=== PATIENT | female | born 1985 | race American Indian/Alaskan Native ===

== ENCOUNTER 2017-05-31 20:58 | Emergency (ER) | payer MEDICAID, OTHER ==
[2017-05-31 22:55] VITALS: BP 139/64
[2017-05-31 23:30] LABS: Bacteria,Urine 2+ /HPF (Negative); Bilirubin,Urine NEG (Negative); Blood,Urine SM (Negative); Color,Urine Yellow (Yellow); HCG Qualitative,Urine Negative (Negative); Nitrite,Urine NEG (Negative); Protein,Urine <15 mg/dL mg/dL (Negative); Urobilinogen,Urine < 2.0 mg/dL (<2.0)
--- NOTE | 2017-06-01 02:46 | Emergency Department Report ---
ED Female HPI - General Chief complaint: Back Pain/Injury Stated complaint: LOWE BACK PAIN/VAG DISCHARGE Time Seen by Provider: 06/01/17 02:40 Source: patient Mode of arrival: Ambulatory Limitations: No Limitations - History of Present Illness Initial comments: This is a 21 y.o. A.A. female presents with low back pain and vaginal discharge for 1 week. The discharge in thin with fishy odor and heavy production. She tried using monistat for 2 days out of 3 day pack but symptoms got worse. Patient reports originally not itching but after using monistat she began to itch. She took a test at home and it was negative yesterday. There is a risk of this possibly being a STD. LMP 04/15/2016. Denies abdominal pain, urgency, frequency, and fever. MD Complaint: vaginal discharge (thin, yellow, and fishy odor), possible STD -: week(s) (1) Location: labia (itching) Radiation: L flank, R flank Severity: moderate Severity scale (0 -10): 5 Quality: aching Consistency: constant Improves with: none Worsens with: none Are you Now?: No Last Menstrual Period: 04/15/16 EDC: 01/20/17 Associated Symptoms: vaginal discharge. denies: vaginal bleeding, abdominal pain, nausea/vomiting, fever/chills, headaches, loss of appetite, dysuria, hematuria, rash, seizure, shortness of breath, syncope, weakness - Related Data Sexually active: Yes Previous Rx's Medication Instructions Recorded Last Taken Type Ondansetron [Zofran Odt] 8 mg PO TID #14 tab.rapdis 08/19/13 Unknown Rx metroNIDAZOLE [Metronidazole] 500 mg PO BID 7 Days #14 tablet 06/01/17 Unknown Rx Allergies Allergy/AdvReac Type Severity Reaction Status Date / Time No Known Allergies Allergy Verified 06/12/13 06:42 ED Review of Systems ROS: Stated complaint: LOWE BACK PAIN/VAG DISCHARGE Other details as noted in HPI Constitutional: denies: chills, fever Respiratory: denies: cough, shortness of breath, wheezing Cardiovascular: denies: chest pain, palpitations Gastrointestinal: denies: abdominal pain, nausea, vomiting, diarrhea Genitourinary: discharge (thin, yellow, fishy odor). denies: urgency, dysuria, frequency, hematuria, abnormal menses, dyspareunia Musculoskeletal: back pain (low back pain). 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 Absent: respiratory distress - Cardiovascular Cardiovascular Exam: Present: regular rate, normal rhythm. Absent: systolic murmur, diastolic murmur, rubs, gallop - GI/Abdominal GI/Abdominal exam: Present: soft, normal bowel sounds - External exam: Present: normal external exam. Absent: erythema, swelling, lesions, lacerations, ecchymosis, bleeding Speculum exam: Present: erythema (strawberry cervix), vaginal discharge (thin, frothy, yellow), cervical discharge. Absent: vaginal bleeding, foreign body, tissue, laceration Bi-manual exam: Present: cervical motion tendernes. Absent: adnexal tenderness , adnexal mass, uterine enlargement - Neurological Exam Neurological exam: Present: alert, oriented X3 - Skin Skin exam: Present: warm, dry, intact, normal color. Absent: rash ED Course Vital Signs 05/31/17 22:50 Temperature 98 F Pulse Rate 76 Respiratory 16 Rate Blood Pressure 139/64 O2 Sat by Pulse 100 Oximetry ED Medical Decision Making - Medical Decision Making This is a 32 y.o. A.A. female presents with vaginal discharge and low back pain for 1 month. Recent exposure to STD. Failed treatment of symptoms with monistat x 2 days of 3 day pack. Patient was examined by me. Obtained wet prep and G/C via pelvic exam, results positive for bacterial vaginitis. Emperically treated for G/C with rocephin 250 mg IM and azithromycin 1 gram po. Awaiting G/C results. Discussed results with patient. Return in 3-5 days for lab results. Discharged home in stable condition. Start metronidazole 500 mg po bid x 7 days. Discussed prevention options. F/U with PCP or Health Department. Critical care attestation.: If time is entered above; I have spent that time in minutes in the direct care of this critically ill patient, excluding procedure time. ED Disposition Clinical Impression: Exposure to STD, Vaginal discharge, Bacterial vaginitis Disposition: TO HOME OR SELFCARE Is pt being admited?: No Does the pt Need Aspirin: No Condition: Stable Instructions: Sexually Transmitted Diseases (ED), Safe Sex (ED), Bacterial Vaginosis (ED) Additional Instructions: Avoid drinking alcohol for 24 hours. Continue safe sexual intercourse. Follow up with Primary Care Provider or health department. Prescriptions: metroNIDAZOLE [Metronidazole] 500 mg PO BID 7 Days #14 tablet Referrals: [facility] [Outside] - 3-[address] [facility] [Outside] - 3-5 Days [facility] [Outside] - 3-5 Days Forms: STI Treatment and Prevention Time of Disposition: 02:58 Print Language: ANDORRAN
[2017-06-01] MEDS ORDERED: ZITHROMAX PO ONE (02:59)
[2017-06-01] MEDS ORDERED: XYLOCAINE 1% MPF 5 mL INFILTRATI ONE (03:00)
[2017-06-01] MEDS ORDERED: ROCEPHIN IM ONE (03:00)
== END 2017-06-01 03:40 | disposition home or self-care (01) ==
LOC: ED 20:58
DX: N76.0 Acute vaginitis (principal); N89.8 Other specified noninflammatory disorders of vagina
CPT/HCPCS: 81001; 81025; 87210; 87591; 96372; 99284; J0696

== ENCOUNTER 2019-04-18 07:05 | Emergency (ER) | payer SELFPAY ==
[2019-04-18 07:23] VITALS: BP 140/90
[2019-04-18] MEDS ORDERED: ONDANSETRON 4 MG ODT TAB PO ONE (09:54)
[2019-04-18] MEDS ORDERED: diphenhydrAMINE 25 MG CAP PO ONE (09:54)
[2019-04-18] MEDS ORDERED: KETOROLAC 30 MG/1 ML INJ IM ONE (09:54)
--- NOTE | 2019-04-18 10:13 | Emergency Department Report ---
ED Headache HPI - General Chief Complaint: Headache Stated Complaint: COLD SYMPTOMS, HEADACHE Time Seen by Provider: 04/18/19 09:00 - History of Present Illness Initial Comments: This is a 34-year-old female with no past medical history presents to ED complaining of cold symptoms for the past 3 weeks and that headache for the past week. Patient states that she does have a history of migraine headaches and has been taking Excedrin with no relief. Patient has a sensation taking TheraFlu Tylenol Cold for her cold symptoms with no relief. She denies any trauma injuries or falls. He denies fevers/chills/nausea vomiting blurred vision Timing/Duration: 1 week Quality: mild, moderate Head Injury Location: frontal, temporal Associated Symptoms: nasal congestion, nasal drainage. denies: confusion, facial pain, nausea/vomiting Allergies/Adverse Reactions: Allergies No Known Allergies Allergy (Verified 06/12/13 06:42) Home Medications: Ambulatory Orders Ondansetron [Zofran Odt] 8 mg PO TID #14 tab.rapdis 08/19/13 metroNIDAZOLE [Metronidazole] 500 mg PO BID 7 Days #14 tablet 06/01/17 Benzonatate [Tessalon Perles] 100 mg PO Q8HR #20 capsule 04/18/19 Butalb/Acetamin/Caff 50-325-40 [Fioricet] 1 tab PO Q8HR PRN #20 tablet 04/18/19 predniSONE [Deltasone] 20 mg PO QDAY #4 tab 04/18/19 ED Review of Systems ROS: Stated complaint: COLD SYMPTOMS, HEADACHE Other details as noted in HPI Comment: All other systems reviewed and negative Constitutional: no symptoms reported ED Past Medical Hx - Past Medical History Previous Medical History?: No - Surgical History Past Surgical History?: Yes Additional Surgical History: 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 - Social History Smoking Status: Never Smoker Substance Use Type: None - Medications Home Medications: Home Medications Medication Instructions Recorded Confirmed Last Taken Type Ondansetron [Zofran Odt] 8 mg PO TID #14 tab.rapdis 08/19/13 Unknown Rx metroNIDAZOLE [Metronidazole] 500 mg PO BID 7 Days #14 tablet 06/01/17 Unknown Rx Benzonatate [Tessalon Perles] 100 mg PO Q8HR #20 capsule 04/18/19 Unknown Rx Butalb/Acetamin/Caff 50-325-40 1 tab PO Q8HR PRN #20 tablet 04/18/19 Unknown Rx [Fioricet] predniSONE [Deltasone] 20 mg PO QDAY #4 tab 04/18/19 Unknown Rx ED Physical Exam - General Limitations: No Limitations General appearance: alert, in no apparent distress - Head Head exam: Present: atraumatic, normocephalic - Eye Eye exam: Present: normal appearance, PERRL Pupils: Present: normal accommodation - ENT ENT exam: Present: mucous membranes moist - Neck Neck exam: Present: normal inspection - Respiratory Respiratory exam: Present: normal lung sounds bilaterally. Absent: respiratory distress - Cardiovascular Cardiovascular Exam: Present: regular rate, normal rhythm. Absent: systolic murmur, diastolic murmur, rubs, gallop - GI/Abdominal GI/Abdominal exam: Present: soft, normal bowel sounds - Extremities Exam Extremities exam: Present: normal inspection - Back Exam Back exam: Present: normal inspection - Neurological Exam Neurological exam: Present: alert, oriented X3 - Expanded Neurological Exam Expanded Patient oriented to: Present: person, place, time Speech: Present: fluid speech Cerebellar function: Finger to Nose: Normal Motor strength exam: RUE: 5, LUE: 5, RLE: 5, LLE: 5 Best Eye Response ([place]): (4) open spontaneously Best Motor Response ([place]): (6) obeys commands Best Verbal Response ([place]): (5) oriented [place] Total: 15 - Psychiatric Psychiatric exam: Present: normal affect, normal mood - Skin Skin exam: Present: warm, dry, intact, normal color. Absent: rash ED Course Vital Signs 04/18/19 07:20 Temperature 97.7 F Pulse Rate 86 Respiratory 16 Rate Blood Pressure 140/90 O2 Sat by Pulse 96 Oximetry ED Medical Decision Making - Medical Decision Making 34-year-old female presents with headache. Discussed with patient headache is most likely secondary to cold symptoms. Patient received medication in the ED. Patient had no neurological deficit. Vital signs are normal she is in no acute distress. Discussed follow-up with primary care physician. Critical care attestation.: If time is entered above; I have spent that time in minutes in the direct care of this critically ill patient, excluding procedure time. ED Disposition Clinical Impression: Acute headache, Sinus headache Disposition: TO HOME OR SELFCARE Is pt being admited?: No Does the pt Need Aspirin: No Condition: Stable Instructions: Acute Headache (ED), Migraine Headache (ED) Additional Instructions: Make sure to follow up with the primary care physician as discussed. Take all your medications as you've been prescribed. If you have any worsening symptoms or develop new symptoms please return to ED immediately. Referrals: PRIMARY CARE, [Primary Care Provider] - 3-5 Days Forms: Accompanied Note, Work/School Release Form(ED) Time of Disposition: 10:13
== END 2019-04-18 11:01 | disposition home or self-care (01) ==
LOC: ED 07:05
DX: R51 Headache (principal); Z79.899 Other long term (current) drug therapy
CPT/HCPCS: 96372; 99282; J1885; Q0162